=== PATIENT | female | born 1965 | race Caucasian/White ===

== ENCOUNTER 2018-01-23 10:21 | Day surgery (SDC) | payer OTHER, MEDICAID ==
[~2018-01-23 10:21] MED LIST: Lactated Ringers 1,000 ML IV SCH
[2018-01-23] MEDS ORDERED: fentaNYL 100 MCG/2 ML SDV IV ONE (10:22)
[2018-01-23] MEDS ORDERED: Midazolam 1 MG/ML 2 ML SDV IV ONE (10:22)
[2018-01-23] MEDS ORDERED: Propofol 200 MG/20 ML SDV IV ONE (10:22)
[2018-01-23] MEDS ORDERED: Ondansetron 4 MG/2 ML SDV IV ONE (10:22)
[2018-01-23] MEDS ORDERED: Lidocaine 1% 30 ML SDV INJECT ONE ×2 (10:22→11:28)
[2018-01-23] MEDS ORDERED: Ketorolac 30 MG/ML SDV IVPUSH ONE (10:22)
[2018-01-23] MEDS ORDERED: Lidocaine 1% 30 ML SDV ONE (11:00)
--- NOTE | 2018-01-27 17:05 | OR ---
DATE: 01/23/2018 INTRODUCTION: This patient has a history of abscesses at the thigh. She currently has 3; 2 are relatively healed, but one is quite large, it is getting better, but it is in neighborhood of skin necrotic area of 2 cm. She has had other leg abscesses incised and drained, but this one; however, continues to drain and has obvious skin necrosis and needs to be debrided. PREOPERATIVE DIAGNOSIS: Left thigh abscess, 2 cm. POSTOPERATIVE DIAGNOSIS: Left thigh abscess, 2 cm. PROCEDURE: Incision and drainage with debridement of left thigh abscess. ANESTHESIA: Local plus MAC. SPECIMEN: Culture. DESCRIPTION OF PROCEDURE: After adequate preparation, an elliptical incision was made around the open necrotic skin area in the upper medial thigh. This was carried down full-thickness to healthy viable subcutaneous tissue. This was then cauterized for hemostasis and the wound was irrigated and suctioned clear. Culture of the wound had been taken as well as sending the necrotic skin. The wound was packed with a 2 x 2 gauze pad and sterile 4x4s as a cover dressing. The patient was taken to recovery room. [facility] /[id number]
== END 2018-01-23 12:45 | disposition home or self-care (01) ==
LOC: DL.SDS 10:21
PROVIDERS: ATTEND Surgery
DX: L02.416 Cutaneous abscess of left lower limb (principal); Z87.891 Personal history of nicotine dependence
CPT/HCPCS: 10060; 87070; 87075; 87077; 87186; J1885; J2250; J2405; J2704; J3010; J7120

== ENCOUNTER 2020-07-20 06:25 | Day surgery (SDC) | payer OTHER, MEDICAID ==
[~2020-07-20 06:25] MED LIST changes: -Lactated Ringers 1,000 ML IV SCH; +Midazolam 1 MG/ML 2 ML SDV ONE; +fentaNYL 100 MCG/2 ML SDV ONE
[2020-07-20] MEDS ORDERED: Midazolam 1 MG/ML 2 ML SDV IV ONE ×6 (06:26→07:29)
[2020-07-20] MEDS ORDERED: fentaNYL 100 MCG/2 ML SDV IV ONE ×3 (06:26→07:20)
[2020-07-20] MEDS ORDERED: Dextrose 5%-0.45% NaCl 1,000 ML IV SCH (06:45)
--- NOTE | 2020-07-20 13:47 | OR ---
DATE: 07/20/2020 PREOPERATIVE DIAGNOSIS: Screening colonoscopy. POSTOPERATIVE DIAGNOSIS: Screening colonoscopy. PROCEDURE: Total colonoscopy. ANESTHESIA: Conscious sedation with IV Versed and fentanyl. SPECIMEN: None. FINDINGS: Normal colonoscopy. RECOMMENDATIONS: Followup colonoscopy for screening in 10 years or sooner for symptoms. INDICATION FOR PROCEDURE: This 54-year-old female presents for screening colonoscopy. PROCEDURE IN DETAIL: After adequate preparation, a colonoscope was inserted into the rectum. This was easily passed all the way to the cecum. Confirmation of the cecum was made by visualization of the ileocecal valve on palpation in the right lower quadrant. There was also a light shining through the right lower quadrant. The bowel prep was good. On withdrawal of the scope, no abnormalities were noted. There was no evidence of polyps, masses, bleeding sites, colitis, or diverticula. Anal and rectal examinations are also normal. Air was suctioned from the colon and the scope removed. [facility] /[id number]
== END 2020-07-20 09:12 | disposition home or self-care (01) ==
LOC: DL.ENDO 06:25
PROVIDERS: ATTEND Surgery
DX: Z12.11 Encounter for screening for malignant neoplasm of colon (principal); Z01.812 Encounter for preprocedural laboratory examination; Z20.828 Contact with and (suspected) exposure to other viral communicable diseases
CPT/HCPCS: 45378; J2250; J3010; J7042; U0002

== ENCOUNTER 2022-11-02 11:05 | Emergency (ER) | payer OTHER, MEDICAID ==
[2022-11-02] MEDS ORDERED: Sodium Chloride 0.9% 10 ML Syringe FLUSH PRN (11:39)
[2022-11-02 12:25] LABS: ANION GAP 12.8 mEq/L (7-13); CHLORIDE,CL 104 mmol/L (98-107); SODIUM,NA 142 mmol/L (136-145)
[2022-11-02 12:27] LABS: ESTIMATED GFR 75 mL/min (>=60)
== END 2022-11-02 12:45 | disposition home or self-care (01) ==
LOC: DL.ED 11:05
DX: R07.9 Chest pain, unspecified (principal); E78.00 Pure hypercholesterolemia, unspecified; I10 Essential (primary) hypertension; Z91.048 Other nonmedicinal substance allergy status; Z79.82 Long term (current) use of aspirin; Z79.899 Other long term (current) drug therapy
CPT/HCPCS: 36415; 71045; 80053; 81001; 82150; 83605; 83690; 83735; 84443; 84484; 85025; 86140; 93010; 99284; 99285